=== PATIENT | male | born 1965 | race Caucasian/White ===

== ENCOUNTER 2016-09-06 16:06 | Emergency (ER) | payer BC ==
[2016-09-06] MEDS ORDERED: LORazepam INJ* 2 MG/ML 1 ML VIAL IV ONE (16:46)
[2016-09-06 16:53] LABS: Hematocrit 45 % (42-52); Mean Corpuscular HGB Conc 33 g/dl (31-36); Mean Corpuscular Hemoglobin 31 pg (27-31); Mean Corpuscular Volume 92 fL (80-94); Mean Platelet Volume 8 um3 (7.4-10.4); Red Blood Count 4.87 10^6/ul (4.0-5.4); Red Cell Distribution Width 15 % (10.5-15); White Blood Count 8.9 10^3/ul (3.5-10.8)
[2016-09-06] MEDS: NS 0.9% 1000 ML* 3,000 ML IV ONE ×3 (16:55→19:30)
[2016-09-06 17:04] LABS: Urine Bilirubin Negative (Negative); Urine Glucose Negative (Negative); Urine Nitrite Negative (Negative)
[2016-09-06 17:05] LABS: ALT 20 U/L (7-52); AST 25 U/L (13-39); Albumin 4.1 g/dL (3.2-5.2); Alkaline Phosphatase 75 U/L (34-104); Anion Gap 6 mmol/L (2-11); BUN/Creatinine Ratio 19.1 (8-20); Blood Urea Nitrogen 17 mg/dL (6-24); C Reactive Protein 1.05 mg/L (< 5.00); CO2 Carbon Dioxide 27 mmol/L (22-32); Calcium 9.3 mg/dL (8.6-10.3); Chloride 101 mmol/L (101-111); Creatine Kinase 241 U/L (10-223); EGFR African American 116.4 (>60); EGFR Non-African American 90.5 (>60); Globulin 3.3 g/dL (2-4); Glucose 141 mg/dL (70-100); Potassium 3.8 mmol/L (3.5-5.0); Sodium 134 mmol/L (133-145); Total Protein 7.4 g/dL (6.4-8.9)
[2016-09-06 17:13] LABS: Acetaminophen < 15 mcg/mL; Alcohol < 10 mg/dL (<10); Salicylate < 2.50 mg/dL (<30)
[2016-09-06 17:14] LABS: Benzodiazepine Urine Screen None Detected (None Detect)
--- NOTE | 2016-09-06 17:14 | RAD ---
HISTORY: Altered mental status COMPARISONS: May 03, 2015 VIEWS:1: Single frontal portable view of the chest at 4:56 PM FINDINGS: LINES AND TUBES: None. CARDIOMEDIASTINAL SILHOUETTE: The cardiomediastinal silhouette is normal for portable technique. PLEURA: The costophrenic angles are sharp. No pleural abnormalities are noted. LUNG PARENCHYMA: There is hyperinflation. ABDOMEN: The upper abdomen is clear. There is no subphrenic gas. BONES AND SOFT TISSUES: No bone or soft tissue abnormalities are noted. IMPRESSION: NO ACTIVE CARDIOPULMONARY DISEASE.
[2016-09-06 17:24] LABS: TSH (Thyroid Stimulating Horm) 3.18 mcIU/mL (0.34-5.60)
--- NOTE | 2016-09-06 17:39 | RAD ---
HISTORY: Altered mental status, confusion COMPARISONS: May 03, 2015 TECHNIQUE: Multiple contiguous axial CT scans were obtained of the head without intravenous contrast. FINDINGS: The study is limited by patient motion artifact. HEMORRHAGE/INFARCT: There is no hemorrhage or acute infarct. MASSES/SHIFT: There is no mass or shift. EXTRA-AXIAL SPACES: There are no extra-axial fluid collections. SULCI AND VENTRICLES: The sulci and ventricles are normal in size and position for the patient's stated age. CEREBRUM: There are no focal parenchymal abnormalities. BRAINSTEM: There are no focal parenchymal abnormalities. CEREBELLUM: There are no focal parenchymal abnormalities. VESSELS: The vessels are grossly normal. PARANASAL SINUSES: The paranasal sinuses are clear. ORBITS: The orbits are unremarkable. BONES AND SOFT TISSUE: No bone or soft tissue abnormalities are noted. OTHER: None IMPRESSION: NO ACUTE INTRACRANIAL PATHOLOGY.
[2016-09-06] MEDS ORDERED: Diazepam SYRINGE* 5 MG/ML 2 ML SYRINGE (10 MG total) IV ONE (19:12)
[2016-09-06] MEDS ORDERED: Mouth Piece, Nicotine* 1 EACH CARTRIDGE ONE (20:26)
[2016-09-06] MEDS ORDERED: Nicotine Inhaler* 10 MG AMP ONE (20:27)
[2016-09-06 21:12] VITALS: BP 135/100
--- NOTE | 2016-09-06 22:52 | ED ---
Nilo Poole Adam, scribed for Esteban Kaur MD on 09/06/16 at 1649 . Altered Mental Status - HPI Summary HPI Summary: Pt is a 51 year old male presenting with altered mental status. He states that he went to sleep last night and when he woke up his body was jerking and he was having muscle tics. He currently presents with flight of speech and his partner states that he is not himself. He states that the pt's speech is getting worse; it started out as a stutter and it has been becoming less intelligible. The partner last saw the pt normal at 21:00 last night after the pt went to the grocery store. His partner states that the pt did not leave the house again after that. Pt has been on Xanax for over 10 yeas but he has not been taking it for the last few days. He also takes Adderall and gabapentin (for over 10 years) . The pt and his partner say that he has never been in this state before. Pt denies FORREST, CP, SOB, fever, and N/V/D. PMHx of HIV (+ since 1987). Positive tobacco Hx. - History Of Current Complaint Chief Complaint: EDAltMentalStatus Stated Complaint: SEIZURE LIKE ACTIVITY Time Seen by Provider: 09/06/16 16:27 Hx Obtained From: Patient Onset/Duration: Suddenly Timing: Constant, Lasting Hours Severity Initially: Moderate Severity Currently: Moderate Character: Agitation Aggravating Factor(s): Unknown Alleviating Factor(s): Nothing - Allergies/Home Medications Allergies/Adverse Reactions: Allergies Allergy/AdvReac Type Severity Reaction Status Date / Time Codeine Allergy See Comment Verified 05/16/14 17:31 Home Medications: Home Medications Alprazolam [Xanax] 2 mg PO BID 09/06/16 [History Confirmed 09/06/16] Amphetamine-Dextroamphetamine [Adderall 30 mg-] 30 mg PO TID 09/06/16 [History Confirmed 09/06/16] Diltiazem HCl Coated Beads [Diltiazem HCl ER] 180 mg PO DAILY 09/06/16 [History Confirmed 09/06/16] Gabapentin [Gabapentin] 800 mg PO TID 09/06/16 [History Confirmed 09/06/16] Raltegravir* [Isentress*] 400 mg PO DAILY 09/06/16 [History Confirmed 09/06/16] Sildenafil Citrate [Viagra] 100 mg PO DAILY PRN 09/06/16 [History Confirmed 04/14] Tenofovir/Emtricitabine(*) [Truvada*] 200 - 300 mg PO DAILY 09/06/16 [History Confirmed 09/06/16] Venlafaxine HCl [Effexor Xr] 150 mg PO DAILY 09/06/16 [History Confirmed ] PMH/Surg Hx/FS Hx/Imm Hx Endocrine/Hematology History: Denies: Hx Diabetes, Hx Thyroid Disease Cardiovascular History: Reports: Hx Coronary Artery Disease - CHOLESTEROL CONTROL WITH MEDICATION, Hx Hypertension - CONTROL WITH MEDICATIONS Respiratory History: Reports: Hx Sleep Apnea - current CPAP user, Other Respiratory Problems/Disorders Denies: Hx Asthma, Hx Chronic Obstructive Pulmonary Disease (COPD) GI History: Denies: Hx Ulcer Sensory History: Denies: Hx Contacts or Glasses, Hx Hearing Aid Opthamlomology History: Denies: Hx Contacts or Glasses Psychiatric History: Reports: Hx Anxiety - ON MEDS, Hx Depression - ON MEDS - Surgical History Surgery Procedure, Year, and Place: 1993 HPV REMOVED, [facility]. COLONOSCOPY Hx Anesthesia Reactions: No - DIFFICULT TO SEDATE Infectious Disease History: No Infectious Disease History: Reports: Hx Hepatitis - HEPATITIS B CARRIER, Hx Human Immunodeficiency Virus (HIV) Denies: Traveled Outside the [place] in Last 30 Days - Family History Known Family History: Positive: Unknown Family History: Adopted - Social History Occupation: Employed Part-time Lives: With Family - Domestic partner male Alcohol Use: None Alcohol Amount: Formerly Hx Substance Use: Yes Substance Use Type: Reports: Marijuana Hx Tobacco Use: Yes Smoking Status (MU): Heavy Every Day Tobacco Smoker Amount Used/How Often: 1ppd Review of Systems Positive: Skin Diaphoresis. Negative: Fever Negative: Chest Pain Negative: Shortness Of Breath Negative: Vomiting, Diarrhea, Nausea Negative: Rash Positive: Slurred Speech. Negative: Headache Positive: Anxious All Other Systems Reviewed And Are Negative: Yes Physical Exam - Summary Physical Exam Summary: The patient is well-nourished in no acute distress and in no acute pain. The skin is warm and dry and skin color reflects adequate perfusion. HEENT: The head is normocephalic and atraumatic. The pupils are equal and reactive. The conjunctivae are clear and without drainage. Nares are patent and without drainage. Mouth reveals moist mucous membranes and the throat is without erythema and exudate. The external ears are intact. The ear canals are patent and without drainage. The tympanic membranes are intact. Neck is supple with full range of motion and non-tender. There are no carotid bruits. There is no neck vein distension. Respiratory: Chest is non-tender. Lungs are clear to auscultation and breath sounds are symmetrical and equal. Cardiovascular: Systolic murmur in the left secondary costal space. Tachycardic. Abdomen: The abdomen is soft and non-tender. There are normal bowel sounds heard in all four quadrants and there is no organomegaly palpated. Musculoskeletal: There is no back pain noted. Extremities are non-tender with full range of motion. There is good capillary refill. There is no peripheral edema or calf tenderness elicited. Neurological: Flight of ideas. Tangential when he speaks. Patient is alert and oriented to person, place and time. No facial droop. The patient has symmetrical motor strength in all four extremities. Cranial nerves 3-12 are grossly intact. Deep tendon reflexes are symmetrical and equal in all four extremities. Negative finger to nose. No pronator drift. Psychiatric: The patient has an appropriate affect and does not exhibit any anxiety or depression. Triage Information Reviewed: Yes Vital Signs On Initial Exam: Initial Vitals Temp Pulse Resp BP Pulse Ox 98.7 F 113 20 155/89 99 09/06/16 16:14 09/06/16 16:14 09/06/16 16:14 09/06/16 16:14 09/06/16 16:14 Vital Signs Reviewed: Yes Diagnostics - Vital Signs Vital Signs Temp Pulse Resp BP Pulse Ox 09/06/16 16:14 98.7 F 113 20 155/89 99 - Laboratory Lab Results: Lab Results 09/06/16 09/06/16 09/06/16 Range/Units 16:44 16:44 16:44 WBC 8.9 (3.5-10.8) 10^3/ul RBC 4.87 (4.0-5.4) 10^6/ul Hgb 15.0 (14.0-18.0) g/dl Hct 45 (42-52) % MCV 92 (80-94) fL MCH 31 (27-31) pg MCHC 33 (31-36) g/dl RDW 15 (10.5-15) % Plt Count 192 (150-450) 10^3/ul MPV 8 (7.4-10.4) um3 Neut % (Auto) 48.8 (38-83) % Lymph % (Auto) 33.4 (25-47) % Hopkins % (Auto) 10.2 H (1-9) % Eos % (Auto) 6.5 H (0-6) % Baso % (Auto) 1.1 (0-2) % Absolute Neuts (auto) 4.4 (1.5-7.7) 10^3/ul Absolute Lymphs (auto) 3.0 (1.0-4.8) 10^3/ul Absolute Monos (auto) 0.9 H (0-0.8) 10^3/ul Absolute Eos (auto) 0.6 (0-0.6) 10^3/ul Absolute Basos (auto) 0.1 (0-0.2) 10^3/ul Absolute Nucleated RBC 0 10^3/ul Nucleated RBC % 0 INR (Anticoag Therapy) 0.82 L (0.89-1.11) Sodium (133-145) mmol/L Potassium (3.5-5.0) mmol/L Chloride (101-111) mmol/L Carbon Dioxide (22-32) mmol/L Anion Gap (2-11) mmol/L BUN (6-24) mg/dL Creatinine (0.67-1.17) mg/dL Est GFR ( Amer) (>60) Est GFR (Non-Af Amer) (>60) BUN/Creatinine Ratio (8-20) Glucose (70-100) mg/dL Lactic Acid (0.5-2.0) mmol/L Calcium (8.6-10.3) mg/dL Total Bilirubin (0.2-1.0) mg/dL AST (13-39) U/L ALT (7-52) U/L Alkaline Phosphatase (34-104) U/L Total Creatine Kinase (10-223) U/L Troponin I (<0.04) ng/mL C-Reactive Protein (< 5.00) mg/L Total Protein (6.4-8.9) g/dL Albumin (3.2-5.2) g/dL Globulin (2-4) g/dL Albumin/Globulin Ratio (1-3) TSH (0.34-5.60) mcIU/mL Urine Color Yellow Urine Appearance Clear Urine pH 6.0 (5-9) Ur Specific [place] 1.010 (1.010-1.030) Urine Protein Negative (Negative) Urine Ketones Negative (Negative) Urine Blood Negative (Negative) Urine Nitrate Negative (Negative) Urine Bilirubin Negative (Negative) Urine Urobilinogen Negative (Negative) Ur Leukocyte Esterase Negative (Negative) Urine Glucose Negative (Negative) Salicylates (<30) mg/dL Urine Opiates Screen (None Detect) Acetaminophen mcg/mL Ur Barbiturates Screen (None Detect) Ur Phencyclidine Scrn (None Detect) Ur Amphetamines Screen (None Detect) U Benzodiazepines Scrn (None Detect) Urine Cocaine Screen (None Detect) U Cannabinoids Screen (None Detect) Serum Alcohol (<10) mg/dL 09/06/16 09/06/16 09/06/16 Range/Units 16:44 16:44 16:44 WBC (3.5-10.8) 10^3/ul RBC (4.0-5.4) 10^6/ul Hgb (14.0-18.0) g/dl Hct (42-52) % MCV (80-94) fL MCH (27-31) pg MCHC (31-36) g/dl RDW (10.5-15) % Plt Count (150-450) 10^3/ul MPV (7.4-10.4) um3 Neut % (Auto) (38-83) % Lymph % (Auto) (25-47) % Hopkins % (Auto) (1-9) % Eos % (Auto) (0-6) % Baso % (Auto) (0-2) % Absolute Neuts (auto) (1.5-7.7) 10^3/ul Absolute Lymphs (auto) (1.0-4.8) 10^3/ul Absolute Monos (auto) (0-0.8) 10^3/ul Absolute Eos (auto) (0-0.6) 10^3/ul Absolute Basos (auto) (0-0.2) 10^3/ul Absolute Nucleated RBC 10^3/ul Nucleated RBC % INR (Anticoag Therapy) (0.89-1.11) Sodium 134 (133-145) mmol/L Potassium 3.8 (3.5-5.0) mmol/L Chloride 101 (101-111) mmol/L Carbon Dioxide 27 (22-32) mmol/L Anion Gap 6 (2-11) mmol/L BUN 17 (6-24) mg/dL Creatinine 0.89 (0.67-1.17) mg/dL Est GFR ( Amer) 116.4 (>60) Est GFR (Non-Af Amer) 90.5 (>60) BUN/Creatinine Ratio 19.1 (8-20) Glucose 141 H (70-100) mg/dL Lactic Acid 1.8 (0.5-2.0) mmol/L Calcium 9.3 (8.6-10.3) mg/dL Total Bilirubin 0.30 (0.2-1.0) mg/dL AST 25 (13-39) U/L ALT 20 (7-52) U/L Alkaline Phosphatase 75 (34-104) U/L Total Creatine Kinase 241 H (10-223) U/L Troponin I 0.00 (<0.04) ng/mL C-Reactive Protein 1.05 (< 5.00) mg/L Total Protein 7.4 (6.4-8.9) g/dL Albumin 4.1 (3.2-5.2) g/dL Globulin 3.3 (2-4) g/dL Albumin/Globulin Ratio 1.2 (1-3) TSH 3.18 (0.34-5.60) mcIU/mL Urine Color Urine Appearance Urine pH (5-9) Ur Specific [place] (1.010-1.030) Urine Protein (Negative) Urine Ketones (Negative) Urine Blood (Negative) Urine Nitrate (Negative) Urine Bilirubin (Negative) Urine Urobilinogen (Negative) Ur Leukocyte Esterase (Negative) Urine Glucose (Negative) Salicylates < 2.50 (<30) mg/dL Urine Opiates Screen None detected (None Detect) Acetaminophen < 15 mcg/mL Ur Barbiturates Screen None detected (None Detect) Ur Phencyclidine Scrn None detected (None Detect) Ur Amphetamines Screen Presumptive positive H (None Detect) U Benzodiazepines Scrn None detected (None Detect) Urine Cocaine Screen None detected (None Detect) U Cannabinoids Screen Presumptive positive H (None Detect) Serum Alcohol < 10 (<10) mg/dL Result Diagrams: 09/06/16 16:44 09/06/16 16:44 Lab Statement: Any lab studies that have been ordered have been reviewed, and results considered in the medical decision making process. - Radiology CXR Radiology Interpretation Completed By: Radiologist - IMPRESSION: NO ACTIVE CARDIOPULMONARY DISEASE. - CT BRAIN CT Interpretation Completed By: Radiologist - IMPRESSION: NO ACUTE INTRACRANIAL PATHOLOGY. - EKG 16:44 Cardiac Rate: Tachycardia - 101 BPM EKG Rhythm: Sinus Tachycardia EKG Interpretation: Q waves in V1, V2, and V3. - Additional Comments Diagnostic Additional Comments: Troponin I - 0.00 Re-Evaluation - Re-Evaluation First Eval Re-Evaluation Time: 19:12 - Patient is still agitated. Change: Unchanged Altered Mental Statu Course/Dx - Course Course Of Treatment: Patient had mental health evaluation and they decided that he is OK to go home. They will discharge him and have him follow up with his psychiatrist. - Diagnoses Differential Diagnosis/HQI/PQRI: Medication Reaction, Metabolic Disorder, Overdose, Other - Benzodiazepine withdrawal, psychosis Discharge Diagnoses: Altered mental status, Psychoses, Benzodiazepine withdrawal - Provider Notifications Discussed Care Of Patient With: Dr. Arellano (Hospitalist) at 19:25. He will come down to examine the patient. Discharge - Discharge Plan Condition: Stable Disposition: HOME The documentation as recorded by the Nilo mccray Adam accurately reflects the service I personally performed and the decisions made by me, Esteban Kaur MD.
--- NOTE | 2016-09-06 23:07 | CONS ---
MEDICAL CONSULTATION NOTE: DATE OF CONSULT: 09/06/16 - EMERGENCY DEPT PRIMARY CARE PROVIDER: Dr. Karson Duong. INFECTIOUS DISEASE SPECIALIST: Luis Angel Craig MD REQUESTING PROVIDER: Esteban Kaur DO CONSULTING PROVIDER: ADELITA Miller SUPERVISING PHYSICIAN: Ta Arellano MD CHIEF COMPLAINT: Altered mental status. HISTORY OF PRESENT ILLNESS: This is a 51-year-old gentleman with history of anxiety and ADD as well as HIV and hypertension, who presented to the emergency department with altered mental status. The patient is unable to provide a clear history, but based on nursing reports that appears came from family, the patient began to act strangely starting yesterday. He seemed to be very erratic and speaking unusually. He was brought in by his partner for evaluation. The patient denies any acute symptoms including difficulty breathing, chest pain, abdominal pain, nausea, or vomiting. He denies any recent illnesses. No fevers at home. The patient states that he has taken all of his medications as prescribed. He admits to regular marijuana use, but states that he has not taken any other illicit substances, although he states "I wish I had." The patient is incredibly difficult to get an accurate history from. He has several stories that include cryogenically freezing his cat and discussions of extraterrestrial behavior and procedures to bring people back from and several theories about post-apocalyptic scenoarios. The emergency department provider requested hospitalist evaluation with concern for benzodiazepine withdrawal causing his seemingly acute psychosis. His toxicology screen was negative for benzos. The patient has chronically been prescribed Ativan for several years. Review of his recent medications filled shows that he filled his Ativan prescription yesterday. The patient states that he had asked for a change in the way Ativan was prescribed yesterday. He states that he has taken it as prescribed when asked specifically. He states that the only medication that he has missed recently is his Truvada for a couple of days last week when his refills had lapsed. He otherwise denies any new medications. The patient denies any hospitalizations for mental health reasons. His partner who was not present at the time of this interview states that he has not been previously diagnosed with a psychotic disorder. PAST MEDICAL HISTORY: 1. HIV - followed by Dr. Craig and reportedly compliant with Truvada and Isentress. Last CD4 count is from February 2016 and measured at 824. 2. Anxiety. 3. ADD. HOME MEDICATIONS: 1. Xanax 2 mg p.o. b.i.d. 2. Adderall 30 mg p.o. t.i.d. 3. Diltiazem 100 mg p.o. daily. 4. Gabapentin 800 mg p.o. t.i.d. 5. Isentress 400 mg p.o. daily. 6. Viagra 100 mg p.o. daily. 7. Truvada 1 tablet p.o. daily. 8. Effexor 150 mg p.o. daily. 9. Ambien 12.5 mg p.o. at bedtime. SOCIAL HISTORY: The patient lives at home with his partner. He has occasional tobacco use. Regular marijuana use. REVIEW OF SYSTEMS: As noted above in HPI. The patient states otherwise negative. PHYSICAL EXAM: Initial Vitals: Temperature 98.7 degrees Fahrenheit, pulse 113 beats per minute, respiratory rate 20 per minute, oxygen saturation 99% on room air, and blood pressure 155/89 mmHg. Most recent heart rate is 82 beats per minute and blood pressure 123/80 mmHg. General: This is a middle-aged gentleman in no acute distress. He is quite pleasant to speak to. HEENT: Head is normocephalic, atraumatic with moist mucous membranes. Cardiovascular: Heart has a regular rate and rhythm without murmurs, rubs, or gallops. Respiratory: Lungs are clear to auscultation without wheezes, crackles, or rhonchi. Abdomen: Soft and nontender to palpation. Skin: Limited exam shows no concerning rashes or lesions. Psych: The patient is alert. He has a flight of ideas, somewhat rapid speech and nonsensical stories. He is often taken off a subject quite easily. Neuro: The patient has no focal neurologic deficits. He is awake and conversant. DIAGNOSTIC STUDIES/LAB DATA: CBC shows a white blood cell count of 8900, hemoglobin of 15 g/dL, and platelet count of 192,000. INR is normal at 0.82. Comprehensive metabolic panel is within normal limits with a sodium of 134 mmol/ L, potassium of 3.8 mmol/L, serum bicarb of 27, BUN of 17, creatinine of 0.89. Random glucose of 141 mg/dL. Lactic acid of 1.8. Total bilirubin and transaminases are within normal limits. Total creatine kinase mildly elevated at 241. Troponin is negative at 0. TSH normal at 3.18. Urinalysis is negative. Toxicology screen is positive for amphetamines and cannabinoids, specifically negative for benzos. Imaging: CT of the brain shows no acute process. EKG shows a sinus rhythm, some J- point elevation in V1 through V3. There is no old EKG's available for comparison. ASSESSMENT AND PLAN: This is a 51-year-old gentleman with HIV, hypertension, anxiety, and attention deficit disorder, who presents with altered mental status that seems to be fairly acute, starting yesterday. Hospitalist group has been asked to evaluate for possible medical reasons for his acute psychosis. 1. Psychosis - the patient is acutely psychotic. There does not appear to be any acute medical reason for this. The patient reports that he has been compliant with few exceptions with his HIV medications. Certainly, we will check a CD4 count. There was concern that this might represent benzodiazepine withdrawal as he was mildly tachycardic when he reached the emergency department and his toxicology screen is negative for benzos. The patient has received 10 mg of Valium and 2 mg of Ativan since reaching the emergency department and has had no change in mental status, making this quite unlikely to be related to benzodiazepine withdrawal. I highly recommend a psychiatric evaluation and feel strongly that there does not appear to be a medical reason for his acute psychosis. The patient is on chronic amphetamine therapy as well as benzos that may or may not be contributing to his acute presentation. 2. Human immunodeficiency virus - followed by Dr. Craig and reportedly compliant with Isentress and Truvada with last CD4 count being greater than 800. 3. Anxiety. 4. Attention deficit disorder. CODE STATUS: The patient is full code. DISPOSITION: Discussed findings with emergency department provider, Dr. Kaur, who is agreeable to get mental health evaluation. ADELITA MILLER [id number]/CPS #: [id number] MTDD
== END 2016-09-06 21:45 | disposition home or self-care (01) ==
LOC: ED 16:06
DX: R41.82 Altered mental status, unspecified (principal); F29 Unspecified psychosis not due to a substance or known physiological condition; R47.81 Slurred speech; R61 Generalized hyperhidrosis; F41.9 Anxiety disorder, unspecified; F19.939 Other psychoactive substance use, unspecified with withdrawal, unspecified
CPT/HCPCS: 36415; 70450; 71010; 80053; 80307; 80320; 80329; 81003; 82550; 83605; 84443; 84484; 85025; 85610; 86140; 93005; 96374; 99285; A9270-GY; G0480; J2060; J3360

== ENCOUNTER 2022-06-02 19:23 | Inpatient (IN) ==
[2022-06-02] MEDS ORDERED: LORazepam 2 mg VIAL 1 ml IV PUSH ONE (22:48)
[2022-06-02] MEDS ORDERED: Lorazepam PYXIS KEY PRN (22:48)
[2022-06-02 23:36] LABS: ABS Basophils 0.1 10^3/ul (0-0.2); ABS Eosinophils 0.2 10^3/ul (0-0.6); ABS Lymphocytes 2.6 10^3/ul (1.0-4.8); ABS Neutrophils 6.8 10^3/ul (1.5-7.7); Eosinophil % 1.8 %; Hematocrit 40 % (42-52); Hemoglobin 13.6 g/dL (14.0-18.0); Lymphocyte % 24.6 %; Mean Corpuscular HGB Conc 34 g/dL (31-36); Mean Corpuscular Hemoglobin 31 pg (27-31); Mean Corpuscular Volume 91 fL (80-94); Mean Platelet Volume 7.9 fL (7.4-10.4); Nucleated Red Blood Cells % 0.1; Platelet Count 181 10^3/uL (150-450); Red Blood Count 4.43 10^6 /uL (4.18-5.48); Red Cell Distribution Width 15 % (10-15); White Blood Count 10.7 10^3/uL (3.5-10.8)
[2022-06-03] LABS: ALT 46 U/L (7-52); Albumin 4.1 g/dL (3.2-5.2); Albumin/Globulin Ratio 1.5 (1-3); Alkaline Phosphatase 99 U/L (35-149); Blood Urea Nitrogen 12 mg/dL (6-24); CO2 Carbon Dioxide 26 mmol/L (22-32); Chloride 102 mmol/L (101-111); Globulin 2.7 g/dL (2-4); Glucose 97 mg/dL (70-100); Sodium 135 mmol/L (135-145); Total Protein 6.8 g/dL (6.4-8.9)
[2022-06-03 00:09] LABS: Anion Gap 7 mmol/L (2-11)
[2022-06-03 00:38] LABS: Alcohol, S < 13 mg/dL (<13)
[2022-06-03] MEDS ORDERED: Triamcinolone 0.5% OINT 1 TUBE TOPICAL PRN (01:18)
[2022-06-03] MEDS: Nicotine PATCH 14 MG/24 HR PATCH TRANSDERM SCH ×2 (01:19→08:33)
[2022-06-03] MEDS: Thiamine 100 MG/ML 2 ml VIAL 500 MG in NS 0.9% 250 ml 250 ML IV SCH ×3 (01:23→18:26)
[2022-06-03] MEDS ORDERED: ZOLPIDEM 12.5 MG PO PRN (01:50)
[2022-06-03 01:56] LABS: Magnesium 1.7 mg/dL (1.9-2.7); Potassium Redraw 3.5 mmol/L (3.5-5.0)
[2022-06-03 02:25] LABS: High Sensitivity Troponin 1 Hr 25 pg/mL (<20)
[2022-06-03] MEDS: [UNRECOGNIZED DRUG - OTHER] PO SCH ×2 (03:39→20:55)
[2022-06-03] MEDS ORDERED: Magnesium Sulfate IV 3 GM in NS 0.9% 100 ml BAG 100 ML IVPB ONE (05:17)
[2022-06-03] MEDS: Multivitamins/Minerals TAB PO SCH (08:25)
[2022-06-03] MEDS: Benzocaine/Menthol LOZ PO PRN ×2 (08:25→20:33)
[2022-06-03] MEDS: Senna TAB 8.6 mg TAB PO SCH (08:27)
[2022-06-03] MEDS: Lidocaine PATCH 5% PATCH TRANSDERM SCH (08:52)
[2022-06-03] MEDS ORDERED: Potassium Chlor 20 meq TAB.ER PO ONE (09:00)
[2022-06-03] MEDS: oxyCODONE/Acetamin 5/325 mg TAB PO PRN (14:52)
[2022-06-03] MEDS ORDERED: Nicotine GUM 4MG FRUIT FLAVOR PO PRN (20:41)
[2022-06-03] MEDS: Nicotine PATCH 21 MG/24 HR PATCH TRANSDERM SCH (21:00)
[2022-06-04] MEDS: Thiamine 100 MG/ML 2 ml VIAL 500 MG in NS 0.9% 250 ml 250 ML IV SCH ×2 (03:01→10:20)
[2022-06-04 06:35] LABS: ABS Basophils 0.1 10^3/ul (0-0.2); ABS Eosinophils 0.3 10^3/ul (0-0.6); ABS Lymphocytes 1.9 10^3/ul (1.0-4.8); ABS Monocytes 0.7 10^3/ul (0-0.8); ABS Neutrophils 4.6 10^3/ul (1.5-7.7); Eosinophil % 3.5 %; Hematocrit 41 % (42-52); Hemoglobin 13.6 g/dL (14.0-18.0); Lymphocyte % 25.9 %; Mean Corpuscular HGB Conc 34 g/dL (31-36); Mean Corpuscular Hemoglobin 31 pg (27-31); Mean Corpuscular Volume 92 fL (80-94); Mean Platelet Volume 8.3 fL (7.4-10.4); Platelet Count 178 10^3/uL (150-450); Red Blood Count 4.42 10^6 /uL (4.18-5.48); Red Cell Distribution Width 15 % (10-15); White Blood Count 7.5 10^3/uL (3.5-10.8)
[2022-06-04 06:51] LABS: Calcium 8.8 mg/dL (8.6-10.3); eGFR CKD-EPI 98.2 (>60)
[2022-06-04] MEDS: Nicotine PATCH 21 MG/24 HR PATCH TRANSDERM SCH (10:13)
[2022-06-04] MEDS: Multivitamins/Minerals TAB PO SCH (10:16)
[2022-06-04] MEDS: oxyCODONE/Acetamin 5/325 mg TAB PO PRN (10:18)
[2022-06-04] MEDS: Senna TAB 8.6 mg TAB PO SCH (10:18)
[2022-06-04] MEDS: Lidocaine PATCH 5% PATCH TRANSDERM SCH (10:26)
[2022-06-04] MEDS ORDERED: Gadoteridol (CONTRAST) 279.3 MG/ML 10 ML IV ONE (11:22)
[2022-06-04 17:12] VITALS: BP 127/82
[2022-06-04] MEDS ORDERED: EMTRICITABINE PO SCH (21:00)
[2022-06-04] MEDS ORDERED: TENOFOVIR ALAFENAMIDE PO SCH (21:00)
== END 2022-06-04 17:40 | disposition left against medical advice (07) | DRG 421 ==
LOC: EDHOLD 19:23 → ED 19:23 → SUATTDRO 06-03 01:53 → EDHOLD 06-03 02:06 → MEDTELE 06-03 02:41
PROVIDERS: ADMIT Student in an Organized Health Care Education/Training Program; ATTEND Internal Medicine